=== PATIENT | male | born 1985 | race Caucasian/White ===

== ENCOUNTER 2021-10-20 19:51 | Emergency (ER) | payer BC ==
[2021-10-20] MEDS ORDERED: Ibuprofen 600 MG Tab PO ONE (22:20)
[2021-10-20] MEDS ORDERED: Acetaminophen 325 MG Tab PO ONE (22:20)
[2021-10-20 22:31] LABS: CARBON DIOXIDE,CO2 23.9 mmol/L (21.0-32.0); POTASSIUM,K 2.5 mmol/L (3.5-5.1)
[2021-10-20 22:49] LABS: CORONAVIRUS COVID-19 NAA POSITIVE (NEGATIVE); INFLUENZA A NAA NEGATIVE (NEGATIVE); INFLUENZA B NAA NEGATIVE (NEGATIVE)
[2021-10-20] MEDS ORDERED: Potassium Chloride 10% 20 MEQ/15 ML Soln 30 ML UD Cup PO ONE (22:55)
== END 2021-10-20 23:45 | disposition home or self-care (01) ==
LOC: MW.ED 19:51
DX: U07.1 COVID-19 (principal); Z88.2 Allergy status to sulfonamides
CPT/HCPCS: 0240U; 36415; 80053; 81001; 85007; 85027; 99283; A9270

== ENCOUNTER 2022-01-11 21:08 | Emergency (ER) | payer BC | END 2022-01-11 22:12 | disposition home or self-care (01) | LOC: MW.ED 21:08 | DX: S28.0XXA Crushed chest, initial encounter (principal); L08.9 Local infection of the skin and subcutaneous tissue, unspecified; Z88.2 Allergy status to sulfonamides; W26.9XXA Contact with unspecified sharp object(s), initial encounter | CPT/HCPCS: 99282; 99283 ==